=== PATIENT | female | born 1960 | race Caucasian/White ===

== ENCOUNTER 2022-04-09 16:18 | Emergency (ER) | payer SELFPAY | END 2022-04-09 17:10 | disposition home or self-care (01) | LOC: FB.ED 16:18 | DX: K04.7 Periapical abscess without sinus (principal) | CPT/HCPCS: 99281; 99282 ==

== ENCOUNTER 2022-04-14 23:49 | Emergency (ER) | payer SELFPAY ==
[2022-04-15] MEDS ORDERED: Ibuprofen 800 MG Tab PO ONE (00:30)
== END 2022-04-15 00:45 | disposition home or self-care (01) ==
LOC: FB.ED 23:49
DX: K02.9 Dental caries, unspecified (principal); Z87.891 Personal history of nicotine dependence
CPT/HCPCS: 99281; 99282; A9270-GY

== ENCOUNTER 2022-10-06 19:31 | Emergency (ER) | payer MEDICARE ==
[2022-10-06] MEDS ORDERED: Sulfamethoxazole/Trimethoprim 800-160 MG Tab PO ONE (19:32)
== END 2022-10-06 20:37 | disposition home or self-care (01) ==
LOC: FB.ED 19:31
DX: S39.012A Strain of muscle, fascia and tendon of lower back, initial encounter (principal); Z79.899 Other long term (current) drug therapy; Z90.710 Acquired absence of both cervix and uterus; X50.0XXA Overexertion from strenuous movement or load, initial encounter
CPT/HCPCS: 81001; 87086; 99283; A9270-GY

== ENCOUNTER 2024-08-31 22:14 | Emergency (ER) | payer MEDICARE ==
[2024-08-31] MEDS: Cyclobenzaprine 10 MG Tab PO ONE (23:29)
[2024-08-31] MEDS: Ibuprofen 400 MG Tab PO ONE (23:29)
== END 2024-09-01 00:19 | disposition home or self-care (01) ==
LOC: FB.ED 22:14
DX: S39.012A Strain of muscle, fascia and tendon of lower back, initial encounter (principal); Z86.16 Personal history of COVID-19; Z88.5 Allergy status to narcotic agent; X50.0XXA Overexertion from strenuous movement or load, initial encounter
CPT/HCPCS: 99283; A9270

== ENCOUNTER 2025-04-25 23:56 | Emergency (ER) | payer MEDICARE ==
[2025-04-26 00:18] VITALS: BP 154/81; PULSE 84
[2025-04-26 00:41] LABS: BASOPHILS PERCENT AUTO 0.7 % (0.2-1.5); EOSINOPHILS ABSOLUTE AUTO 0.2 x10-3/uL (0.0-0.8); HEMATOCRIT 41.2 % (34.2-48.2); HEMOGLOBIN 14.7 g/dL (11.4-15.5); LYMPHOCYTES ABSOLUTE AUTO 1.8 x10-3/uL (1.0-4.4); LYMPHOCYTES PERCENT AUTO 36.1 % (18.4-52.1); MEAN CORPUSCULAR HEMOGLOBIN 29.6 pg (23.9-33.9); MEAN CORPUSCULAR HGB CONC 35.7 g/dL (31.9-34.8); MEAN CORPUSCULAR VOLUME 82.7 fL (76.7-100.5); MEAN PLATELET VOLUME 7.4 fL (7.1-12.4); MONOCYTES ABSOLUTE AUTO 0.3 x10-3/uL (0.3-1.0); MONOCYTES PERCENT AUTO 6.6 % (4.4-15.7); NEUTROPHILS ABSOLUTE AUTO 2.6 x10-3/uL (1.5-6.3); NEUTROPHILS PERCENT AUTO 52.6 % (30.8-76.2); PLATELET COUNT,PLT 222 x10(3)uL (151-488); RED BLOOD CELL COUNT 4.98 x10(6)uL (3.60-5.20); RED CELL DISTRIBUTION WIDTH 12.4 % (12.3-16.5); WHITE BLOOD CELL COUNT,WBC 4.9 x10-3/uL (3.0-10.3)
[2025-04-26 00:44] LABS: BLOOD UREA NITROGEN,BUN 18 mg/dL (7-18); CALCIUM 9.5 mg/dL (8.6-10.2); CARBON DIOXIDE,CO2 30 mmol/L (21-32); CHLORIDE,CL 104 mmol/L (100-110); CREATININE 0.9 mg/dL (0.55-1.02); EST CRCL DRUG DOSING (CG) 52.21 mL/min; ESTIMATED GFR 71 mL/min (>60); GLUCOSE RANDOM 123 mg/dL (80-116); POTASSIUM,K 4.4 mmol/L (3.5-5.3); SODIUM,NA 138 mmol/L (135-145)
[2025-04-26 00:49] LABS: A/G RATIO 1.1; ALANINE AMINOTRANSFERASE,ALT 33 U/L (12-36); ALBUMIN 4.2 g/dL (3.2-4.6); ALKALINE PHOSPHATASE 83 IU/L (56-112); ASPARTATE AMNIOTRANSFERASE,AST 24 IU/L (5-25); BILIRUBIN TOTAL 0.6 mg/dL (0.1-1.3); PROTEIN TOTAL,TP 7.9 g/dL (6.0-8.0)
== END 2025-04-26 01:24 | disposition home or self-care (01) ==
LOC: FB.ED 23:56
DX: F19.232 Other psychoactive substance dependence with withdrawal with perceptual disturbance (principal); Z86.16 Personal history of COVID-19; Z79.899 Other long term (current) drug therapy; Z88.5 Allergy status to narcotic agent
CPT/HCPCS: 36415; 80053; 85025; 86140; 99283; 99284